=== PATIENT | male | born 1995 | race Caucasian/White ===

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

== ENCOUNTER 2019-04-16 23:25 | Emergency (ER) | payer BC, OTHER ==
[~2019-04-16] VITALS: Ht 175.3 cm; Wt 90.7 kg
[2019-04-16 23:35] VITALS: BP 137/86
--- NOTE | 2019-04-16 23:35 | NUR ---
TO BED # 05 AMBULATORY
--- NOTE | 2019-04-17 | NUR ---
PT ASSESSMENT COMPLETE. PT SEATED UPRIGHT IN BED. WILL CONTINUE TO MONITOR.
--- NOTE | 2019-04-17 00:03 | NUR ---
Dr. Davila examining patient.
[2019-04-17] MEDS: predniSONE 20 MG TAB PO ONE (00:54)
[2019-04-17] MEDS: predniSONE 20 MG TAB ONE (00:54)
[2019-04-17] MEDS: diphenhydrAMINE 50 MG CAP PO ONE (00:55)
[2019-04-17 01:16] VITALS: BP 124/76
--- NOTE | 2019-04-17 01:16 | NUR ---
Patient discharged with v/s stable. No more c/o itching. No sob/dyspnea. Written and verbal after care instructions given and explained. Patient alert, oriented and verbalized understanding of instructions. Ambulatory with steady gait. All questions addressed prior to discharge. ID band removed. Patient advised to follow up with PMD. Rx of Prednisone and Benadryl given. Patient educated on indication of medication including possible reaction and side effects. Opportunity to ask questions provided and answered.
== END 2019-04-17 01:16 | disposition home or self-care (01) ==
LOC: MED 23:25
DX: L27.2 Dermatitis due to ingested food (principal); T78.1XXA Other adverse food reactions, not elsewhere classified, initial encounter
CPT/HCPCS: 99283; J7512; Q0163